=== PATIENT | female | born 1940 | race Caucasian/White ===

== ENCOUNTER 2019-03-17 08:17 | Inpatient (IN) | payer OTHER, MEDICARE, SELFPAY ==
--- NOTE | ~2019-03-17 | XR_ITS ---
EXAMINATION: XR chest 1V portable DATE: 03/20/2019 14:48 INDICATION: Pneumonia and shortness of breath TECHNIQUE: frontal view of the chest was obtained. COMPARISON: Chest radiograph dated 03/18/2019 FINDINGS: Reticular and patchy airspace opacities in the bilateral mid to lower lung zones with slight worsenin g at the left lower lung zone and slight improvement in the right lower lung zone increased lucency a nd architectural distortion in the upper lung zones suggestive but not diagnostic of COPD. Blunting a t the bilateral costophrenic angles likely related to small bilateral pleural effusions. No pneumotho rax. The cardiomediastinal silhouette is within normal limits for AP technique and accounting for rig htward rotation of the patient. Vertebral plasties of a couple levels in the midthoracic spine. IMPRESSION: 1. Opacities in the bilateral mid to lower lung zones which could represent pulmonary edema, pneumoni a or combination thereof likely superimposed over small bilateral pleural effusions. Reviewed, dictated and finalized at location B. K CAPTAIN IMPRESSION: 1. Opacities in the bilateral mid to lower lung zones which could represent pul monary edema, pneumonia or combination thereof likely superimposed over small b ilateral pleural effusions.
--- NOTE | ~2019-03-17 | XR_ITS ---
XR chest 1V portable DATE: 03/22/2019 10:22 INDICATION: Shortness of breath. Pneumonia. TECHNIQUE: Portable upright AP chest on 03/22/2019 at 1015 hours COMPARISON: 03/20/2019 portable AP chest at 1206 hours FINDINGS: There is prominent patchy consolidation in the right lower lung, increased since 03/20/2019 . There is patchy left lower lobe infiltrate and/or atelectasis. There is bilateral hyperinflation, consistent with COPD. Cardiomegaly. Aortic calcification. Diffuse osteopenia. There is vertebroplasty at two levels in the lower thoracic spine. Diffuse oste openia. IMPRESSION: Bilateral infiltrates, right greater than left, increased since 03/20/2019 Reviewed, dictated and finalized at location A. NET ABRASIVE SANDBLASTER
--- NOTE | ~2019-03-17 | XR_ITS ---
EXAMINATION: XR chest 1V portable DATE: 03/17/2019 09:54 INDICATION: Cough. Dyspnea. TECHNIQUE: A single frontal view of the chest was obtained. COMPARISON: Chest single view 04/14/2018 FINDINGS: The patient is rotated to her right. There are airspace opacities in right mid and lower patrick ng zones. There is a small right pleural effusion. No pneumothorax. The heart size is normal. IMPRESSION: 1. Airspace opacities in right mid and lower lung zones, consistent with atelectasis versus pneumonia . 2. Small right pleural effusion. Reviewed, dictated and finalized at location A. RDS MANAGEMENT MANAGER IMPRESSION: 1. Airspace opacities in right mid and lower lung zones, consistent with atelec tasis versus pneumonia. 2. Small right pleural effusion.
--- NOTE | ~2019-03-17 | XR_ITS ---
XR chest 1V portable 03/18/2019 16:44 Indication: Pneumonia. Shortness of breath. Procedure: AP portable chest Comparison: Comparison to multiple prior studies sequentially, with oldest reviewed study dated 04/14. Findings: There has been progression of extensive consolidation of the right mid and lower lung, comp atible with pneumonia. Small right pleural effusion. There is left basilar atelectasis/scarring. Ther e is emphysema. Borderline heart size. There is atherosclerosis of the aorta. Impression: 1: Progression of pneumonia involving the right mid and lower lung. 2: Small right pleural effusion. 3: Emphysema. Reviewed, dictated and finalized at location A. DEVELOPER PROGRAMMER Impression: 1: Progression of pneumonia involving the right mid and lower lung. 2: Small right pleural effusion. 3: Emphysema.
--- NOTE | ~2019-03-17 | CT_ITS ---
EXAMINATION: CT brain wo con DATE: 03/17/2019 10:07 INDICATION: Dementia. TECHNIQUE: Computed tomography (CT) of the head was performed without intravenous contrast. The mA wa s adjusted according to patient size. Iterative reconstruction technique was employed. The dose-lengt h product was 681.00 mGy-cm. COMPARISON: None FINDINGS: There is mild motion artifact. There are scattered areas of low attenuation in the cerebral white matter. There is an old infarct in left parietal lobe. There is a small old infarct in right f rontoparietal region. There is no intracranial hemorrhage, acute infarction, or abnormal intracranial mass lesion. The ventricles are normal in size. The mastoid air cells are normal. There is mild muco yousif thickening in the ethmoid sinuses. The orbits are normal. IMPRESSION: 1. Old infarcts in right frontoparietal region and left parietal lobe. 2. Extensive nonspecific cerebral white matter disease, which likely represents chronic small vessel ischemic disease. Reviewed, dictated and finalized at location A. ATION DIAGNOSTICIAN
--- NOTE | 2019-03-17 08:22 | ED.GENADULT ---
HPI - General Adult General Chief complaint: Upper Respiratory Infection Stated complaint: fever Time Seen by Provider: 03/17/19 08:22 Source: EMS Mode of arrival: EMS Limitations: dementia History of Present Illness HPI narrative: A 78 y/o female presents to the ED, via EMS, with c/o a fever. Per EMS, pt has a PMHx of a CVA and favors her right side. Pt has home health and has been sick for 1 week with a cough and a fever of 100.8 degrees F. A complete HPI is limited due to dementia. Onset (ago): week(s) (1) Associated symptoms: cough Related Data Home Medications Medication Instructions Recorded Confirmed aspirin [Adult Low Dose Aspirin] 81 mg PO DAILY 03/17/19 03/17/19 buspirone 10 mg PO BID 03/17/19 hydrocodone-acetaminophen [[place]] 1 tablet PO Q4H PRN 03/17/19 03/17/19 levofloxacin 500 mg PO DAILY 03/17/19 03/17/19 loratadine [Allergy Relief 10 mg PO DAILY 03/17/19 03/17/19 (loratadine)] lorazepam 2 mg PO BID PRN 03/17/19 03/17/19 prednisone 20 mg PO BID 03/17/19 03/17/19 zolpidem 5 mg PO HS PRN 03/17/19 03/17/19 Allergies Allergy/AdvReac Type Severity Reaction Status Date / Time azithromycin Allergy Mild Verified 06/18/12 12:00 nabumetone Allergy Unknown Verified 11/18/10 08:24 No Known Allergies Allergy Unknown Verified 03/17/19 08:57 Review of Systems Review of Systems: Narrative: CONSTITUTIONAL: Reports 100.8 degree F fever RESPIRATORY: Reports cough A complete ROS is limited due to dementia. PMFSH Past Medical History Medical History (Updated 03/17/19 @ 16:36 by Asya Restrepo MD) Asthma Bronchitis COPD (chronic obstructive pulmonary disease) CVA (cerebral vascular accident) Dementia Emphysema of lung Hyperlipidemia Osteoporosis Surgical History Surgical History (Updated 03/17/19 @ 08:40 by Carito Quiroz) H/O section History of appendectomy Family History Family History (Updated 03/17/19 @ 14:37 by Estefany Beaver RN) Mother Patient's mother is Hypertension, Onset Age: 57 Father Patient's father is Carcinoma of colon, Onset Age: 67 Sibling Carcinoma of colon Cancer Dementia Social History Social History Smoking status: Former smoker Second hand tobacco smoke exposure: Yes Smoking end date: 03/26/86 Alcohol intake: never Gender identity (if verbalized by the patient): Female Comments PCP: Dr. Porter Exam Narrative: Exam Narrative: GENERAL: Cachectic-appearing and in no acute distress. HEAD: Normocephalic, atraumatic. ENT: Nares clear, no rhinorrhea or epistaxis. Mucous membranes dry. NECK: Supple. CHEST: Coarse breath sounds on the left with crackles. Using accessory muscles to breath. Tachypnea. Hypoxia. HEART: Regular rate and rhythm. No murmur heard. Normal peripheral pulses. ABDOMEN: Soft, scaphoid, nontender, nondistended, normal active bowel sounds. EXTREMITIES: Normal range of motion. No edema. SKIN: Warm, dry, no rash. NEURO: Right-sided facial droop. Alert. Course Course Emergency Course: Patient presented for evaluation of cough from hospice facility. At the time of initial assessment, patient is hypotensive, tachycardic, tachypneic. She is afebrile. Patient is cachectic and very unwell appearing. She is in respiratory distress with use of accessory muscles to breathe. She was placed on oxygen via nasal cannula. Pt with leukocytosis, SEBASTIAN, elevated BUN consistent with dehydration. Pt with evidence of pneumonia and we will treat with IV antibiotics; per family this is in line with their wishes. No BIPAP or intubation for the patient. Patient technically meets criteria for severe sepsis given hypotension. No lactic acidosis. Patient was responsive to fluids. Regardless, patient will remain on hospice care, orders given from hospitalist for antibiotics, oxygen. Patient admitted to hospice unit. Vital Signs Vital signs: Vital Sig
--- NOTE | 2019-03-17 08:25 | ECG_ITS ---
Measurements Intervals [place] Rate: 91 P: 84 VA: 134 QRS: 77 QRSD: 94 T: 65 QT: 281 QTc: 346 Interpretive Statements SINUS RHYTHM NONSPECIFIC T-WAVE ABNORMALITY- ANTERIOR LEADS BORDERLINE ECG Electronically Signed On 03-17-2019 11:47:40 FABRIC WORKER SUPERVISOR by Wali Crabtree D.O.
[2019-03-17 08:27] VITALS: BP 95/58; PULSE 102; RESP 28; TEMP 37.2; O2SAT 94
[2019-03-17 09:07] LABS: Basophils Absolute Auto 0.1 K/mm3 (0.0-0.1); Basophils Percent Auto 0.4 % (0.2-1.2); Hematocrit 39.4 % (37.0-47.0); Hemoglobin 12.5 g/dL (12.0-15.0); Immature Granulocyte Absolute 0.06 K/mm3 (0.00-0.031); Immature Granulocyte Percent A 0.5 % (0-0.5); Lymphocytes Absolute Auto 0.89 K/mm3 (0.9-3.2); Lymphocytes Percent Auto 6.9 % (18.3-44.2); Mean Corpuscular HGB Conc 31.7 g/dl (32-36); Mean Corpuscular Hemoglobin 32.1 pg (26-34); Mean Corpuscular Volume 101.3 fl (80-100); Mean Platelet Volume 12.1 fl (7.4-10.4); Monocytes Absolute Auto 0.7 K/mm3 (0.1-0.6); Monocytes Percent Auto 5.7 % (2.6-8.5); Neutrophils Absolute Auto 11.3 K/mm3 (1.3-6.7); Neutrophils Percent Auto 86.5 % (45.5-73.1); Platelet Count Result 230 k/mm3 (150-375); Red Blood Count 3.89 M/mm3 (4.2-5.4); Red Cell Distribution Width 13.7 % (11.5-14.5)
[2019-03-17 09:17] LABS: INR 1.1; Prothrombin Time 14.1 Seconds (11.1-14.7)
[2019-03-17 09:18] LABS: Partial Thromboplastin Time 29.9 SECONDS (22.3-36.8)
[2019-03-17 09:20] LABS: Lactic Acid Reflex 1.1 mmol/L (0.7-2.1)
[2019-03-17] MEDS: AMPICILLIN SODIUM/SULBACTAM 3 GM in SODIUM CHLORIDE 0.9% IV 100 ML IVPB ×3 (09:22→21:23)
[2019-03-17] MEDS: SODIUM CHLORIDE 0.9% IV 1,000 ML 999 ML IV CONT (09:23)
[2019-03-17 09:28] LABS: Alanine Aminotransferase 12 U/L (4-35); Albumin Level 3.7 g/dL (3.5-5.1); Alkaline Phosphatase 77 U/L (38-126); Aspartate Amino Transferase 18 U/L (14-36); Bilirubin,Total 0.7 mg/dL (0.2-1.3); Blood Urea Nitrogen 47 mg/dL (7-17); Calcium 9.3 mg/dL (8.4-10.2); Carbon Dioxide 33 mmol/L (22-30); Chloride 99 mmol/L (98-107); Estimated Glomerular Filt Rate 44; Glucose 162 mg/dL (65-105); Potassium 3.5 mmol/L (3.4-5.0); Sodium 141 mmol/L (137-145)
[2019-03-17 09:31] LABS: Troponin I 0.016 ng/mL (0.000-0.034)
[2019-03-17 10:12] LABS: Add Urine Microscopic? YES; Amorphous Sediment Urine Few; Appearance Urine Turbid (Clear); Bacteria Urine Trace /hpf; Bilirubin Urine Negative (Negative); Color Urine Yellow (Yellow); Glucose Urine UA Negative (Negative); Hyaline Casts Urine 50+ /lpf; Ketones Urine Negative (Negative); Leukocyte Esterase Ur Negative LEU/UL (Negative); Mucus Urine Moderate /lpf; Nitrate Urine Negative (Negative); Protein Urine 2+ mg/dL (Negative); Specific Grav Ur 1.019 (1.001-1.035); Urobilinogen Urine Negative mg/dL (<2.0); WBC Clumps Urine Present /HPF
[2019-03-17 10:19] LABS: Blood Urine Negative (Negative)
[2019-03-17 10:37] LABS: CRP 42.6 mg/dL (<1.0)
[2019-03-17 10:45] VITALS: BP 100/55; PULSE 86; RESP 22; TEMP 37.1; O2SAT 100
[2019-03-17 11:25] LABS: NT Pro B Type Natriuretic Pept 736 PG/ML (5-100)
[2019-03-17 12:55] VITALS: BP 86/47; PULSE 88; RESP 16; TEMP 36.9; O2SAT 93
--- NOTE | 2019-03-17 12:58 | ADMGEN ---
This patient, Buffy Mercado, was admitted to [facility] 1255. Patient/family oriented to hospital policies and general routines including ID bracelet, bed and alarms, visiting hours, pain management, procedures, bathroom and other care routines, personal items, smoking policy, room service/diet, and visiting hours. Valuables list has been completed. Information on how to activate the Rapid Response Team has been discussed. Patient/Family are encouraged to report perceived risks to care and to ask questions if they do not understand what they are told or what they should do.
[2019-03-17 14:08] VITALS: BMI 16.1
[2019-03-17] MEDS: LORAZEPAM INJ 2 MG/ML VIAL 1 MG IV PUSH (16:26)
[2019-03-17 20:00] VITALS: BP 112/49; PULSE 92; RESP 20; TEMP 36.9; O2SAT 95
[2019-03-17] MEDS: QUEtiapine FUMARATE 25 MG TABLET PO (21:24)
[2019-03-18] MEDS: AMPICILLIN SODIUM/SULBACTAM 3 GM in SODIUM CHLORIDE 0.9% IV 100 ML IVPB ×4 (03:30→19:58)
[2019-03-18 08:00] VITALS: BP 96/47; PULSE 124; RESP 16; TEMP 36.8; O2SAT 89
[2019-03-18] MEDS: ASPIRIN 81 MG CHEWABLE TABLET PO (09:42)
--- NOTE | 2019-03-18 16:20 | PM.IMHP ---
H&P: HPI History of Present Illness Chief complaint: pneumonia Narrative: Buffy Mercado is a 78 year old female patient was seen today at 10am, patient currently is on hospice was brought to the emergency department patient had this persistent cough and fever patient is chest x-ray patient the patient has pneumonia patient was admitted for pain management as well as with IV antibiotic, patient is quite somnolent and sleepy son present in the room who states normally sees much alert and interactive however since development pneumonia patient is quite somnolent Review of Systems Review of Systems: ROS unobtainable: unobtainable due to mental condition PMFSH Past Medical History Medical History (Updated 03/17/19 @ 16:36 by Asya Restrepo MD) Asthma Bronchitis COPD (chronic obstructive pulmonary disease) CVA (cerebral vascular accident) Dementia Emphysema of lung Hyperlipidemia Osteoporosis Surgical History Surgical History (Updated 03/17/19 @ 08:40 by Carito Quiroz) H/O section History of appendectomy Family History Family History (Updated 03/17/19 @ 14:37 by Estefany Beaver RN) Mother Patient's mother is Hypertension, Onset Age: 57 Father Patient's father is Carcinoma of colon, Onset Age: 67 Sibling Carcinoma of colon Cancer Dementia Social History Social History Smoking status: Former smoker Second hand tobacco smoke exposure: Yes Smoking end date: 03/26/86 Alcohol intake: never Gender identity (if verbalized by the patient): Female Meds Home Medications and Allergies Home Medications Medication Instructions Recorded Confirmed Type aspirin [Adult Low Dose Aspirin] 81 mg PO DAILY 03/17/19 03/17/19 History buspirone 10 mg PO BID 03/17/19 03/17/19 History hydrocodone-acetaminophen [[place]] 1 tablet PO Q4H PRN 03/17/19 03/17/19 History levofloxacin 500 mg PO DAILY 03/17/19 03/17/19 History loratadine [Allergy Relief 10 mg PO DAILY 03/17/19 03/17/19 History (loratadine)] lorazepam 2 mg PO BID PRN 03/17/19 03/17/19 History prednisone 20 mg PO BID 03/17/19 03/17/19 History zolpidem 5 mg PO HS PRN 03/17/19 03/17/19 History Allergies Allergy/AdvReac Type Severity Reaction Status Date / Time azithromycin Allergy Mild Verified 06/18/12 12:00 nabumetone Allergy Unknown Verified 11/18/10 08:24 No Known Allergies Allergy Unknown Verified 03/17/19 08:57 Vital Signs Vital Signs - 24 hr 03/17/19 20:00 03/18/19 08:00 Temperature 98.4 F 98.2 F Pulse Rate 92 124 H Respiratory Rate 20 16 Blood Pressure 112/49 L 96/47 L Pulse Oximetry 95 89 L Exam Narrative: Exam Narrative: Patient elderly frail somnolent Const: General: comfortable and no acute distress HENMT: General nose exam: nares normal Neck: Neck: supple Resp: Other: Bilateral fair air entry with rhonchi Cardio: Rate: regular rate Rhythm: regular rhythm GI: GI Palp: Yes soft Auscultation: normal bowel sounds Skin: General skin exam: normal color and no rashes or lesions noted Extrem: General: normal to inspection Psych: Other: Patient is quite somnolent Assessment and Plan Assessment and plan (1) Pneumonia: Qualifiers: Laterality: bilateral Lung location: unspecified part of lung Pneumonia type: due to unspecified organism Qualified Code(s): J18.9 - Pneumonia, unspecified organism Code(s): J18.9 - Pneumonia, unspecified organism Status: Acute Assessment and Plan: Buffy Mercado is a 78 year old female patient was seen today at 10am, patient currently is on hospice was brought to the emergency department patient had this persistent cough and fever patient is chest x-ray patient the patient has pneumonia patient was admitted for pain management as well as with IV antibiotic, patient is quite somnolent and sleepy son present in the room who states normal
[2019-03-18] MEDS: LORAZEPAM INJ 2 MG/ML VIAL 1 MG IV PUSH (16:51)
[2019-03-18 20:00] VITALS: BP 114/58; PULSE 78; RESP 16; TEMP 37; O2SAT 94
[2019-03-18] MEDS: QUEtiapine FUMARATE 25 MG TABLET PO (20:03)
--- NOTE | 2019-03-18 21:40 | PM.IMPN ---
Progress Note: A&P Assessment and Plan (1) Admission for palliative care: Code(s): Z51.5 - Encounter for palliative care Status: Acute Assessment and Plan: The patient appears comfortable and is in no distress. Will continue p.r.n. Ativan for agitation and Seroquel. (2) Pneumonia: Qualifiers: Laterality: bilateral Lung location: unspecified part of lung Pneumonia type: due to unspecified organism Qualified Code(s): J18.9 - Pneumonia, unspecified organism Code(s): J18.9 - Pneumonia, unspecified organism Status: Acute (3) Sepsis: Qualifiers: Acute renal failure type: unspecified Sepsis acute organ dysfunction status: with acute organ dysfunction Sepsis type: sepsis due to unspecified organism Severe sepsis acute organ dysfunction type: acute renal failure Severe sepsis shock status: without septic shock Qualified Code(s): A41.9 - Sepsis, unspecified organism; R65.20 - Severe sepsis without septic shock; N17.9 - Acute kidney failure, unspecified Code(s): A41.9 - Sepsis, unspecified organism Status: Acute Assessment and Plan: Patient is on IV antibiotic therapy. The patient may be transitioned to oral therapy at time of discharge. (4) Dementia: Qualifiers: Dementia type: unspecified type Dementia behavioral disturbance: with behavioral disturbance Qualified Code(s): F03.91 - Unspecified dementia with behavioral disturbance Code(s): F03.90 - Unspecified dementia without behavioral disturbance Status: Acute Assessment and Plan: Continue Seroquel nightly. Patient could be switched back to her home BuSpar at discharge. Time Spent With Patient Time with patient: 15 - 25 minutes Subjective Date/time seen: 03/18/19 21:40 Review of Systems Review of Systems: ROS unobtainable: unobtainable due to mental status Exam Narrative: Exam Narrative: PHYSICAL EXAM: WEIGHT 43.9 kg BMI 16.1 General: HEENT: Neck: Respiratory: Cardiovascular: Gastrointestinal: Skin: Extremities: Neurological: Psychiatric: Objective Data Vital Signs Vital Signs: Vital Signs - 24 hr 03/18/19 08:00 03/18/19 20:00 Temperature 98.2 F 98.6 F Pulse Rate 124 H 78 Respiratory Rate 16 16 Blood Pressure 96/47 L 114/58 L Pulse Oximetry 89 L 94 Intake/Output Intake/Output: Intake & Output 03/15/19 03/16/19 03/17/19 03/18/19 23:59 23:59 23:59 23:59 Intake Total 1550 600 Output Total 600 Balance 950 600 Meds/Results Medications: Active Medications Generic Name Dose Route Start Last Admin Trade Name Freq PRN Reason Stop Dose Admin Albuterol 2.5 mg 03/17/19 18:14 Albuterol Sulf Neb 2.5 Mg/3 Ml INHALATION Q4HRT PRN Shortness Of Breath Or Wheezing Aspirin 81 mg 03/18/19 08:00 03/18/19 09:42 Aspirin Chewable PO 81 mg DAILY@0800 JASPAL Administration Atropine Sulfate 2 drop 03/17/19 14:41 Atropine Sulfate 1% Ophth Shaniqua SUBLINGUAL Q4H PRN Secretions Bisacodyl 10 mg 03/17/19 14:41 Dulcolax Suppository RECTAL QAM PRN Constipation Ampicillin Sodium/Sulbactam 100 mls @ 200 mls/hr 03/17/19 15:00 03/18/19 19:58 Sodium 3 gm/ Sodium Chloride IVPB 200 mls/hr Q6H JASPAL Administration Vancomycin HCl 750 mg in 250 mls @ 250 mls/hr 03/19/19 02:00 Vancomycin 750 Mg/D5w 250 Ml IVPB Q36H JASPAL Lorazepam 1 mg 03/17/19 17:00 03/18/19 16:51 Ativan IV PUSH 1 mg BID JASPAL Administration Lorazepam 2 mg 03/17/19 14:39 Ativan IV PUSH Q2H PRN ANXIETY/SOB Morphine Sulfate 1 mg 03/17/19 14:40 Morphine Sulfate Inj IV PUSH Q2H PRN Pain Quetiapine Fumarate 25 mg 03/17/19 21:00 03/18/19 20:03 Seroquel PO 25 mg HS JASPAL Administration Radiology Results: ITS Impressions Head CT 03/17/19 10:10 IMPRESSION: 1. Old infarcts in right frontoparietal region and left parietal lobe. 2. Extensive nonsp
[2019-03-19] MEDS: AMPICILLIN SODIUM/SULBACTAM 3 GM in SODIUM CHLORIDE 0.9% IV 100 ML IVPB ×4 (03:09→21:02)
[2019-03-19] MEDS: LORAZEPAM INJ 2 MG/ML VIAL 1 MG IV PUSH ×2 (09:20→16:06)
[2019-03-19] MEDS: MORPHINE SULFATE 2 MG/ML INJ 1 MG IV PUSH (13:29)
[2019-03-19 14:00] VITALS: BP 107/51; PULSE 78; RESP 16; TEMP 36.3; O2SAT 93
--- NOTE | 2019-03-19 15:47 | PM.IMPN ---
Progress Note: A&P Assessment and Plan (1) Admission for palliative care: Code(s): Z51.5 - Encounter for palliative care Status: Acute Assessment and Plan: The patient appears comfortable and is in no distress. Will continue p.r.n. Ativan for agitation and Seroquel. (2) Pneumonia: Qualifiers: Laterality: bilateral Lung location: unspecified part of lung Pneumonia type: due to unspecified organism Qualified Code(s): J18.9 - Pneumonia, unspecified organism Code(s): J18.9 - Pneumonia, unspecified organism Status: Acute Assessment and Plan: Buffy Mercado is a 78 year old female patient was seen today at 10am, patient currently is on hospice was brought to the emergency department patient had this persistent cough and fever patient is chest x-ray patient the patient has pneumonia patient was admitted for pain management as well as with IV antibiotic, repeat chest x-ray on 03/18 showed peristent pneumonia, today patient little more awake, [facility] nurse is present. will monitor and plan tomorrow. (3) Sepsis: Qualifiers: Acute renal failure type: unspecified Sepsis acute organ dysfunction status: with acute organ dysfunction Sepsis type: sepsis due to unspecified organism Severe sepsis acute organ dysfunction type: acute renal failure Severe sepsis shock status: without septic shock Qualified Code(s): A41.9 - Sepsis, unspecified organism; R65.20 - Severe sepsis without septic shock; N17.9 - Acute kidney failure, unspecified Code(s): A41.9 - Sepsis, unspecified organism Status: Acute Assessment and Plan: Patient is on IV antibiotic therapy. The patient may be transitioned to oral therapy at time of discharge. (4) Dementia: Qualifiers: Dementia type: unspecified type Dementia behavioral disturbance: with behavioral disturbance Qualified Code(s): F03.91 - Unspecified dementia with behavioral disturbance Code(s): F03.90 - Unspecified dementia without behavioral disturbance Status: Acute Assessment and Plan: Continue Seroquel nightly. Patient could be switched back to her home BuSpar at discharge. Subjective Date/time seen: 03/19/19 15:47 Interval history: Buffy Mercado is a 78 year old female patient was seen today at 10am, patient currently is on hospice was brought to the emergency department patient had this persistent cough and fever patient is chest x-ray patient the patient has pneumonia patient was admitted for pain management as well as with IV antibiotic, repeat chest x-ray on 03/18 showed peristent pneumonia, today patient little more awake, [facility] nurse is present. Review of Systems Review of Systems: ROS unobtainable: unobtainable due to mental condition and unobtainable due to mental status Exam Narrative: Exam Narrative: Elderly frail some Const: General: comfortable and no acute distress HENMT: General nose exam: nares normal Mouth: Yes moist mucous membranes Eyes: General: appearance normal, both eyes and all related structures Sclera: sclerae normal Neck: Neck: supple Resp: Other: Bilateral poor air entry with rhonchi Cardio: Rate: regular rate Rhythm: regular rhythm Objective Data Vital Signs Vital Signs: Vital Signs - 24 hr 03/18/19 20:00 03/19/19 14:00 Temperature 98.6 F 97.3 F L Pulse Rate 78 78 Respiratory Rate 16 16 Blood Pressure 114/58 L 107/51 L Pulse Oximetry 94 93 Intake/Output Intake/Output: Intake & Output 03/16/19 03/17/19 03/18/19 03/19/19 23:59 23:59 23:59 23:59 Intake Total 1550 700 570 Output Total 600 Balance 950 700 570 Meds/Results Medications: Active Medications Generic Name Dose Route Start Last Admin Trade Name Freq PRN Reason Stop Dose Admin Albuterol 2.5 mg 03/17/19 18:14 Albuterol Sulf Neb 2.5 Mg/3 Ml INHALATION Q4HRT PRN Shortness Of Breath Or Wheezing Aspirin 81 mg 03/18/19 08:00 03/19/19 09:34 Aspi
[2019-03-19] MEDS: QUEtiapine FUMARATE 25 MG TABLET PO (21:02)
[2019-03-19 22:00] VITALS: BP 119/75; PULSE 88; RESP 16; TEMP 37; O2SAT 95
[2019-03-20] MEDS: AMPICILLIN SODIUM/SULBACTAM 3 GM in SODIUM CHLORIDE 0.9% IV 100 ML IVPB ×4 (02:47→22:11)
[2019-03-20 06:27] LABS: Estimated CRCL calculation 41 ml/min; Estimated Glomerular Filt Rate > 60
[2019-03-20 07:55] VITALS: O2SAT 95
[2019-03-20] MEDS: ASPIRIN 81 MG CHEWABLE TABLET PO (08:55)
[2019-03-20 13:53] LABS: Vancomycin Trough < 5.0 ug/mL (10.0-20.0)
[2019-03-20 15:03] VITALS: BP 136/64; PULSE 84; RESP 16; TEMP 36.7; O2SAT 97
--- NOTE | 2019-03-20 15:26 | PM.IMPN ---
Progress Note: A&P Assessment and Plan (1) Admission for palliative care: Code(s): Z51.5 - Encounter for palliative care Status: Acute Assessment and Plan: The patient appears comfortable and is in no distress. Will continue p.r.n. Ativan for agitation and Seroquel. (2) Pneumonia: Qualifiers: Laterality: bilateral Lung location: unspecified part of lung Pneumonia type: due to unspecified organism Qualified Code(s): J18.9 - Pneumonia, unspecified organism Code(s): J18.9 - Pneumonia, unspecified organism Status: Acute Assessment and Plan: Buffy Mercado is a 78 year old female patient was seen today at 10am, patient currently is on hospice was brought to the emergency department patient had this persistent cough and fever patient is chest x-ray patient the patient has pneumonia patient was admitted for pain management as well as with IV antibiotic, repeat chest x-ray on 03/18 showed peristent pneumonia, repeat CXR still shows perisistent pneumonia with some improvement, patient little more awake, two of her sons are present. we will reassess tomorrow and plan. (3) Sepsis: Qualifiers: Acute renal failure type: unspecified Sepsis acute organ dysfunction status: with acute organ dysfunction Sepsis type: sepsis due to unspecified organism Severe sepsis acute organ dysfunction type: acute renal failure Severe sepsis shock status: without septic shock Qualified Code(s): A41.9 - Sepsis, unspecified organism; R65.20 - Severe sepsis without septic shock; N17.9 - Acute kidney failure, unspecified Code(s): A41.9 - Sepsis, unspecified organism Status: Acute Assessment and Plan: Patient is on IV antibiotic therapy. The patient may be transitioned to oral therapy at time of discharge. (4) Dementia: Qualifiers: Dementia type: unspecified type Dementia behavioral disturbance: with behavioral disturbance Qualified Code(s): F03.91 - Unspecified dementia with behavioral disturbance Code(s): F03.90 - Unspecified dementia without behavioral disturbance Status: Acute Assessment and Plan: Continue Seroquel nightly. Patient could be switched back to her home BuSpar at discharge. Subjective Date/time seen: 03/20/19 15:26 Interval history: Buffy Mercado is a 78 year old female patient was seen today at 10am, patient currently is on hospice was brought to the emergency department patient had this persistent cough and fever patient is chest x-ray patient the patient has pneumonia patient was admitted for pain management as well as with IV antibiotic, repeat chest x-ray on 03/18 showed peristent pneumonia, repeat CXR still shows perisistent pneumonia with some improvement, patient little more awake, two of her sons are present. . Review of Systems Review of Systems: ROS unobtainable: unobtainable due to mental condition and unobtainable due to mental status Exam Narrative: Exam Narrative: Elderly frail some Const: General: comfortable and no acute distress HENMT: General nose exam: nares normal Mouth: Yes moist mucous membranes Eyes: General: appearance normal, both eyes and all related structures Sclera: sclerae normal Neck: Neck: supple Resp: Other: Bilateral poor air entry with rhonchi Cardio: Rate: regular rate Rhythm: regular rhythm GI: Auscultation: normal bowel sounds Skin: General skin exam: normal color and no rashes or lesions noted Extrem: General: normal to inspection Psych: Other: Patient is quite somnolent Objective Data Vital Signs Vital Signs: Vital Signs - 24 hr 03/19/19 22:00 03/20/19 07:55 03/20/19 15:03 Temperature 98.6 F 98.0 F Pulse Rate 88 84 Respiratory Rate 16 16 Blood Pressure 119/75 136/64 Pulse Oximetry 95 95 97 Intake/Output Intake/Output: Intake & Output 03/17/19 03/18/19 03/19/19 03/20/19 23:59 23:59 23:59 23:59 Intake Total 1550 700 890 200 Output Total
[2019-03-20] MEDS: LORAZEPAM INJ 2 MG/ML VIAL 1 MG IV PUSH (16:42)
[2019-03-20 22:00] VITALS: BP 138/56; PULSE 87; RESP 16; TEMP 36.7; O2SAT 94
[2019-03-20] MEDS: QUEtiapine FUMARATE 25 MG TABLET PO (22:10)
[2019-03-21] MEDS: AMPICILLIN SODIUM/SULBACTAM 3 GM in SODIUM CHLORIDE 0.9% IV 100 ML IVPB ×4 (03:08→20:45)
--- NOTE | 2019-03-21 09:25 | PM.IMPN ---
Progress Note: A&P Assessment and Plan (1) Admission for palliative care: Code(s): Z51.5 - Encounter for palliative care Status: Acute Assessment and Plan: The patient appears comfortable and is in no distress. Will continue p.r.n. Ativan for agitation and Seroquel. (2) Pneumonia: Qualifiers: Laterality: bilateral Lung location: unspecified part of lung Pneumonia type: due to unspecified organism Qualified Code(s): J18.9 - Pneumonia, unspecified organism Code(s): J18.9 - Pneumonia, unspecified organism Status: Acute Assessment and Plan: Buffy Mercado is a 78 year old female patient was seen today at 10am, patient currently is on hospice was brought to the emergency department patient had this persistent cough and fever patient is chest x-ray patient the patient has pneumonia patient was admitted for pain management as well as with IV antibiotic, repeat chest x-ray on 03/18 showed peristent pneumonia, repeat CXR still shows perisistent pneumonia with some improvement, patient little more awake, two of her sons are present. we will reassess tomorrow and plan. --03/21/2019 I discussed the patient's case with Dr. Beyer who had been following with the patient the last several days and with the hospice nurse. Unfortunately uvula patient's condition is not likely to improve significantly. I think she is going to continue to wax and wane in both physical condition and mental status from this point onward. Unfortunately family was not available at bedside at the time of my evaluation. Hospice nurse is going to talk with the patient's family and discuss goals of care. I feel we are not doing anything in the hospital at we could not be doing as outpatient with oral antibiotics and nebulizer treatments at home. However hospice nurse will discuss with the patient's family and will decide final plan from there. (3) Sepsis: Qualifiers: Acute renal failure type: unspecified Sepsis acute organ dysfunction status: with acute organ dysfunction Sepsis type: sepsis due to unspecified organism Severe sepsis acute organ dysfunction type: acute renal failure Severe sepsis shock status: without septic shock Qualified Code(s): A41.9 - Sepsis, unspecified organism; R65.20 - Severe sepsis without septic shock; N17.9 - Acute kidney failure, unspecified Code(s): A41.9 - Sepsis, unspecified organism Status: Acute Assessment and Plan: Patient is on IV antibiotic therapy. The patient may be transitioned to oral therapy at time of discharge. (4) Dementia: Qualifiers: Dementia type: unspecified type Dementia behavioral disturbance: with behavioral disturbance Qualified Code(s): F03.91 - Unspecified dementia with behavioral disturbance Code(s): F03.90 - Unspecified dementia without behavioral disturbance Status: Acute Assessment and Plan: Continue Seroquel nightly. Patient could be switched back to her home BuSpar at discharge. Subjective Date/time seen: 03/21/19 07:00 Interval history: Buffy Mercado is a 78 year old female patient was seen today at 10am, patient currently is on hospice was brought to the emergency department patient had this persistent cough and fever patient is chest x-ray patient the patient has pneumonia patient was admitted for pain management as well as with IV antibiotic, repeat chest x-ray on 03/18 showed peristent pneumonia, repeat CXR 03/20/19 demontrated slight improvement in the opacities of the 1 lung zone with slight worsening opacities still the other lung zone. The patient is not having good inspiratory effort. Patient's condition is largely unchanged compared to examination from Sunday. Review of Systems Review of Systems: ROS unobtainable: unobtainable due to mental condition and unobtainable due to mental status Exam Narrative: Exam Narrative: PHYSICAL EXAM: WEIGHT 43.9 kg BMI 16.1 General: Elderly, frail
[2019-03-21 14:06] VITALS: BP 111/55; PULSE 74; RESP 20; TEMP 36.8; O2SAT 99
[2019-03-21] MEDS: LORAZEPAM INJ 2 MG/ML VIAL 1 MG IV PUSH (17:28)
[2019-03-21 20:00] VITALS: BP 116/54; PULSE 76; RESP 16; TEMP 36.9; O2SAT 98
[2019-03-21 20:13] VITALS: PULSE 81; RESP 20; O2SAT 96
[2019-03-21] MEDS: ALBUTEROL SULFATE NEB 2.5 MG/3 ML INH INHALATION (20:13)
[2019-03-21 20:26] VITALS: PULSE 84; RESP 20
[2019-03-21] MEDS: QUEtiapine FUMARATE 25 MG TABLET PO (20:45)
[2019-03-22 01:19] VITALS: PULSE 74; RESP 16
[2019-03-22] MEDS: ALBUTEROL SULFATE NEB 2.5 MG/3 ML INH INHALATION ×2 (01:19→13:45)
[2019-03-22 01:29] VITALS: PULSE 73; RESP 16
[2019-03-22] MEDS: AMPICILLIN SODIUM/SULBACTAM 3 GM in SODIUM CHLORIDE 0.9% IV 100 ML IVPB ×2 (03:25→10:08)
[2019-03-22] MEDS: ASPIRIN 81 MG CHEWABLE TABLET PO (08:52)
--- NOTE | 2019-03-22 09:33 | PM.DS ---
DS: Diagnosis Admitting Diagnosis Admitting Diagnosis: Pneumonia, unspecified organism Discharge Diagnosis (1) Admission for palliative care: Code(s): Z51.5 - Encounter for palliative care Status: Acute Assessment and Plan: The patient appears comfortable and is in no distress. Will continue p.r.n. Ativan for agitation and Seroquel. (2) Pneumonia: Qualifiers: Laterality: bilateral Lung location: unspecified part of lung Pneumonia type: due to unspecified organism Qualified Code(s): J18.9 - Pneumonia, unspecified organism Code(s): J18.9 - Pneumonia, unspecified organism Status: Acute Assessment and Plan: Buffy Mercado is a 78 year old female patient was seen today at 10am, patient currently is on hospice was brought to the emergency department patient had this persistent cough and fever patient is chest x-ray patient the patient has pneumonia patient was admitted for pain management as well as with IV antibiotic, repeat chest x-ray on 03/18 showed peristent pneumonia, repeat CXR still shows perisistent pneumonia with some improvement, patient little more awake, two of her sons are present. we will reassess tomorrow and plan. --03/21/2019 I discussed the patient's case with Dr. Beyer who had been following with the patient the last several days and with the hospice nurse. Unfortunately uvula patient's condition is not likely to improve significantly. I think she is going to continue to wax and wane in both physical condition and mental status from this point onward. Unfortunately family was not available at bedside at the time of my evaluation. Hospice nurse is going to talk with the patient's family and discuss goals of care. I feel we are not doing anything in the hospital at we could not be doing as outpatient with oral antibiotics and nebulizer treatments at home. However hospice nurse will discuss with the patient's family and will decide final plan from there. --03/22/2019 the patient remains stable on 3 L nasal cannula. A repeat chest x-ray has been ordered since the family was expecting a repeat chest x-ray. However no matter what the results are of the chest x-ray will not change the fact that the patient is hemodynamically stable and can receive oral antibiotic therapy to cover for pneumonia. The patient already has supplemental oxygen at home to use as needed. Will add albuterol nebulizers as needed. (3) Sepsis: Qualifiers: Acute renal failure type: unspecified Sepsis acute organ dysfunction status: with acute organ dysfunction Sepsis type: sepsis due to unspecified organism Severe sepsis acute organ dysfunction type: acute renal failure Severe sepsis shock status: without septic shock Qualified Code(s): A41.9 - Sepsis, unspecified organism; R65.20 - Severe sepsis without septic shock; N17.9 - Acute kidney failure, unspecified Code(s): A41.9 - Sepsis, unspecified organism Status: Resolved Assessment and Plan: Patient is on IV antibiotic therapy. The patient may be transitioned to oral therapy at time of discharge. (4) Dementia: Qualifiers: Dementia behavioral disturbance: with behavioral disturbance Dementia type: unspecified type Qualified Code(s): F03.91 - Unspecified dementia with behavioral disturbance Code(s): F03.90 - Unspecified dementia without behavioral disturbance Status: Acute Assessment and Plan: Continue Seroquel nightly but switch to p.r.n. as needed for sleep. Will resume home BuSpar at discharge. DS: Summary Hospital Course Reason for hospitalization: Pneumonia, sepsis, hypotension, hypoxia Sepsis and hypotension have resolved Hospital Course: Is the patient was admitted the hospital for hypoxia and initial hypotension. However hypotension had resolved in the ER. Patient was placed on 2-3 L nasal cannula. She remained afebrile. She did not have any leukocytosis. She had received 5 days o
[2019-03-22] MEDS: LORAZEPAM INJ 2 MG/ML VIAL 1 MG IV PUSH (10:08)
--- NOTE | 2019-03-22 10:56 | PCRCNOTE ---
Window of time for administration has passed. See next scheduled administration.
[2019-03-22 13:46] VITALS: PULSE 76; RESP 16
[2019-03-22 13:52] VITALS: PULSE 76; RESP 16
[2019-03-22 14:00] VITALS: BP 102/52; PULSE 81; RESP 18; TEMP 36.6; O2SAT 94
--- NOTE | 2019-03-22 16:20 | PCCCNOTE ---
Pt's son Evans Mock called at 1610 and requested to cancel the EMS transport and to revoke hospice, he wants his mother's pnue kosta treated. Called and notified [facility] patient care nursing assistant and she stated she would notify Minh. Called Evans back to let him know I had informed the staff of his wishes.
== END 2019-03-22 16:52 | disposition short-term general hospital (02) | DRG 871 ==
LOC: ANHED 11:14 → ANH3MEDSUR 13:37
PROVIDERS: Admitting Provider Family Medicine; Emergency Provider Emergency Medicine; PCP Internal Medicine; Visit Provider Internal Medicine
DX: A41.9 Sepsis, unspecified organism (principal); J18.9 Pneumonia, unspecified organism; F03.91 Unspecified dementia, unspecified severity, with behavioral disturbance; R64 Cachexia; Z68.1 Body mass index [BMI] 19.9 or less, adult; N17.9 Acute kidney failure, unspecified; R65.20 Severe sepsis without septic shock; R09.02 Hypoxemia; E86.0 Dehydration; J43.9 Emphysema, unspecified; E78.5 Hyperlipidemia, unspecified; M81.0 Age-related osteoporosis without current pathological fracture; Z51.5 Encounter for palliative care; Z86.73 Personal history of transient ischemic attack (TIA), and cerebral infarction without residual deficits; Z87.891 Personal history of nicotine dependence
CPT/HCPCS: 36415; 51701; 70450; 71045; 80053; 80202; 81001; 82565; 83605; 83880; 84484; 85025; 85610; 85730; 86140; 87040; 87086; 87804; 93005; 94640; 96365; 99285; A9270; J0295; J2060; J2270; J3370; J7030

== ENCOUNTER 2019-03-22 16:53 | Inpatient (IN) | payer MEDICARE, OTHER, SELFPAY ==
[2019-03-22 19:13] VITALS: BMI 16.1
[2019-03-22] MEDS: AMPICILLIN SULB 3 GM/NS 100 ML 3 GM/100 ML VIAL IVPB (19:33)
[2019-03-22] MEDS: QUEtiapine FUMARATE 25 MG TABLET PO (21:05)
[2019-03-22 21:51] LABS: Estimated CRCL calculation 54 ml/min; Estimated Glomerular Filt Rate > 60
[2019-03-22 22:00] VITALS: BP 149/97; PULSE 85; RESP 16; TEMP 36.9; O2SAT 95
[2019-03-23] MEDS: AMPICILLIN SULB 3 GM/NS 100 ML 3 GM/100 ML VIAL IVPB ×3 (00:58→12:00)
[2019-03-23 06:40] VITALS: BP 130/65; PULSE 76; RESP 20; TEMP 36.4; O2SAT 97
[2019-03-23 06:51] LABS: Basophils Percent Auto 0.5 % (0.2-1.2); Eosinophils Absolute Auto 0.4 K/mm3 (0-0.3); Eosinophils Percent Auto 4.3 % (0-4.4); Hematocrit 34.4 % (37.0-47.0); Hemoglobin 10.7 g/dL (12.0-15.0); Immature Granulocyte Absolute 0.21 K/mm3 (0.00-0.031); Immature Granulocyte Percent A 2.4 % (0-0.5); Lymphocytes Percent Auto 16.1 % (18.3-44.2); Mean Corpuscular HGB Conc 31.1 g/dl (32-36); Mean Corpuscular Hemoglobin 31.8 pg (26-34); Mean Corpuscular Volume 102.1 fl (80-100); Mean Platelet Volume 10.6 fl (7.4-10.4); Monocytes Absolute Auto 0.7 K/mm3 (0.1-0.6); Monocytes Percent Auto 7.7 % (2.6-8.5); Platelet Count Result 292 k/mm3 (150-375); Red Blood Count 3.37 M/mm3 (4.2-5.4); Red Cell Distribution Width 12.7 % (11.5-14.5); White Blood Count 8.7 K/mm3 (4.5-10.0)
[2019-03-23 07:08] LABS: Alanine Aminotransferase 15 U/L (4-35); Albumin Level 2.8 g/dL (3.5-5.1); Alkaline Phosphatase 51 U/L (38-126); Aspartate Amino Transferase 16 U/L (14-36); Bilirubin,Total 0.3 mg/dL (0.2-1.3); Blood Urea Nitrogen 9 mg/dL (7-17); Calcium 8.6 mg/dL (8.4-10.2); Carbon Dioxide > 40 mmol/L (22-30); Chloride 98 mmol/L (98-107); Estimated CRCL calculation 54 ml/min; Estimated Glomerular Filt Rate > 60; Glucose 95 mg/dL (65-105); Sodium 141 mmol/L (137-145)
--- NOTE | 2019-03-23 09:07 | PC.NURSE ---
This patient, Buffy Mercado, was admitted to [facility] Surg Room 333-01 on 03/22/19 @ 5513. Patient/family oriented to hospital policies and general routines including ID bracelet, bed and alarms, visiting hours, pain management, procedures, bathroom and other care routines, personal items, smoking policy, room service/diet, and visiting hours. Valuables list has been completed. Information on how to activate the Rapid Response Team has been discussed. Patient/Family are encouraged to report perceived risks to care and to ask questions if they do not understand what they are told or what they should do.
[2019-03-23] MEDS: predniSONE 20 MG TABLET PO (09:25)
[2019-03-23] MEDS: LORATADINE 10 MG TABLET PO (09:25)
[2019-03-23] MEDS: busPIRone HCL 10 MG TABLET PO (09:26)
[2019-03-23] MEDS: POTASSIUM CHLORIDE 20 MEQ PACKET (FOR LIQUID) 40 MEQ PO (09:26)
[2019-03-23] MEDS: ASPIRIN 81 MG ENTERIC TABLET PO (09:51)
--- NOTE | 2019-03-23 10:22 | PM.IMHP ---
H&P: HPI History of Present Illness Narrative: Buffy Mercado is a 79 year old female Patient had been on hospice care and was brought the ER for evaluation and was found to have pneumonia patient was started on IV abx and monitored as patient symptoms were not improving patient family decided to revoke her hospice status and patient is admitted for pneumonia, unfortunately patient is not able to provide and history or ROS Review of Systems Review of Systems: ROS unobtainable: unobtainable due to mental condition [facility] Past Medical History Medical History (Updated 03/22/19 @ 09:53 by Ondina Marsh, DO) Asthma Bronchitis COPD (chronic obstructive pulmonary disease) CVA (cerebral vascular accident) Dementia Emphysema of lung Hyperlipidemia Osteoporosis Surgical History Surgical History (Updated 03/17/19 @ 08:40 by Carito Quiroz) H/O section History of appendectomy Social History Social History Smoking status: Former smoker Second hand tobacco smoke exposure: Yes Smoking end date: 03/26/86 Alcohol intake: never Substance use: never Substance use type: does not use Gender identity (if verbalized by the patient): Female Meds Home Medications and Allergies Home Medications Medication Instructions Recorded Confirmed Type aspirin [Adult Low Dose Aspirin] 81 mg PO DAILY 03/17/19 03/22/19 History buspirone 10 mg PO BID 03/17/19 03/22/19 History hydrocodone-acetaminophen [[place]] 1 tablet PO Q4H PRN 03/17/19 03/22/19 History loratadine [Allergy Relief 10 mg PO DAILY 03/17/19 03/22/19 History (loratadine)] lorazepam 2 mg PO BID PRN 03/17/19 03/22/19 History prednisone 20 mg PO BID 03/17/19 03/22/19 History albuterol sulfate 2.5 mg INHALATION Q6HRT PRN 30 03/22/19 03/22/19 Rx Days #360 ml amoxicillin-pot clavulanate 1 tablet PO Q12H #10 tablet 03/22/19 03/22/19 Rx [Augmentin] bisacodyl 10 mg [place] QAM PRN #5 each 03/22/19 03/22/19 Rx quetiapine [Seroquel] 25 mg PO HS PRN #15 tablet 03/22/19 03/22/19 Rx Allergies Allergy/AdvReac Type Severity Reaction Status Date / Time azithromycin Allergy Mild Unknown Verified 03/19/19 23:52 nabumetone Allergy Unknown Unknown Verified 03/19/19 23:52 Vital Signs Vital Signs - 24 hr 03/22/19 22:00 03/23/19 06:40 Temperature 98.5 F 97.6 F Pulse Rate 85 76 Respiratory Rate 16 20 Blood Pressure 149/97 H 130/65 Pulse Oximetry 95 97 Exam Narrative: Exam Narrative: Patient is chronically ill elderly and frail Const: General: comfortable and no acute distress HENMT: General nose exam: nares normal Mouth: Yes moist mucous membranes Eyes: General: appearance normal, both eyes and all related structures Neck: Neck: supple Resp: Other: Bilateral poor air entry with rhonchi Cardio: Rate: regular rate Rhythm: regular rhythm GI: GI Palp: Yes soft Skin: General skin exam: normal color and no rashes or lesions noted Neuro: Cognition (Neuro): abnormal cognition Extrem: Other: Some contraction Psych: Other: Somnolent H&P: Results Labs Labs: Short CBC 03/23/19 Range/Units 06:38 WBC 8.7 (4.5-10.0) K/mm3 Hgb 10.7 L (12.0-15.0) g/dL Hct 34.4 L (37.0-47.0) % Plt Count 292 (150-375) k/mm3 [facility] 03/22/19 03/23/19 21:17 06:38 Sodium 141 Potassium 3.0 L Chloride 98 Carbon Dioxide > 40 H BUN 9 D Creatinine 0.50 L 0.50 L Glucose 95 Calcium 8.6 Liver Function 03/23/19 Range/Units 06:38 Total Bilirubin 0.3 (0.2-1.3) mg/dL AST 16 (14-36) U/L ALT 15 (4-35) U/L Alkaline Phosphatase 51 (38-126) U/L Albumin 2.8 L (3.5-5.1) g/dL Assessment and Plan Assessment and plan (1) Pneumonia: Qualifiers: Laterality: bilateral Lung location: unspecified part of lung Pneumonia type: due to unspecified organism Qualified Code(s): J18.9 - Pneumonia, unspecified organism Code(s): J18.9 - Pn
--- NOTE | 2019-03-23 13:10 | PM.DS ---
DS: Diagnosis Discharge Diagnosis (1) Pneumonia: Qualifiers: Laterality: bilateral Lung location: unspecified part of lung Pneumonia type: due to unspecified organism Qualified Code(s): J18.9 - Pneumonia, unspecified organism Code(s): J18.9 - Pneumonia, unspecified organism Status: Acute Assessment and Plan: Will continue IV antibiotics Zosyn and vancomycin will continue to monitor repeat chest x-ray DS: Summary Time Spent with Patient Time attestation: Total time spent providing and/or coordinating discharge services: Exam Narrative: Exam Narrative: Patient is chronically ill elderly and frail Const: General: comfortable and no acute distress HENMT: General nose exam: nares normal Mouth: Yes moist mucous membranes Eyes: General: appearance normal, both eyes and all related structures Neck: Neck: supple Resp: Other: Bilateral poor air entry with rhonchi Cardio: Rate: regular rate Rhythm: regular rhythm Skin: General skin exam: normal color and no rashes or lesions noted Neuro: Cognition (Neuro): abnormal cognition Extrem: Other: Some contraction Psych: Other: Somnolent DS: Data Data Completed and Pending Labs on day of discharge: Labs from last 24 hours 03/23/19 03/23/19 03/22/19 06:38 06:38 21:17 WBC 8.7 RBC 3.37 L Hgb 10.7 L Hct 34.4 L MCV 102.1 H MCH 31.8 MCHC 31.1 L RDW 12.7 Plt Count 292 MPV 10.6 H Immature Gran % (Auto) 2.4 H Neut % (Auto) 69.0 Lymph % (Auto) 16.1 L [place] % (Auto) 7.7 Eos % (Auto) 4.3 Baso % (Auto) 0.5 Lymph # (Auto) 1.40 [place] # (Auto) 0.7 H Eos # (Auto) 0.4 H Baso # (Auto) 0.0 Abs Immat Gran (auto) 0.21 H Absolute Neuts (auto) 6.0 Absolute Nucleated RBC 0.0 Nucleated RBC % 0.0 Sodium 141 Potassium 3.0 L Chloride 98 Carbon Dioxide > 40 H BUN 9 D Creatinine 0.50 L 0.50 L Estim Creat Clear Calc 54 54 Estimated GFR > 60 > 60 Glucose 95 Calcium 8.6 Total Bilirubin 0.3 AST 16 ALT 15 Alkaline Phosphatase 51 Total Protein 6.0 L Albumin 2.8 L Discharge Plan Discharge Attending physician on discharge: Tea Beyer Discharging Clinician: Tea Beyer Patient Disposition: Hospice - Home Activity: as tolerated Diet: regular Discharge Instructions: Patient is being discharged home where she will be readmitted under hospice care. Patient Instructions: Hospice Care (GEN), Pneumonia (DC) Stand Alone Forms: General Discharge Information Discharge Medications: Continued buspirone 10 mg Tablet 10 mg PO BID RF: 0 lorazepam 2 mg Tablet 2 mg PO BID PRN (Reason: Agitation) RF: 0 aspirin [Adult Low Dose Aspirin] 81 mg Tablet,Delayed Release (Dr/Ec) 81 mg PO DAILY RF: 0 loratadine [Allergy Relief (loratadine)] 10 mg Tablet 10 mg PO DAILY RF: 0 prednisone 20 mg Tablet 20 mg PO BID RF: 0 hydrocodone-acetaminophen [[place]] 5-325 mg Tablet 1 tablet PO Q4H PRN (Reason: Pain (Scale Score 4-6)) RF: 0 quetiapine [Seroquel] 25 mg Tablet 25 mg PO HS PRN (Reason: Sleep) Qty: 15 RF: 0 albuterol sulfate 2.5 mg /3 mL (0.083 %) Solution For Nebulization 2.5 mg inhalation Q6HRT PRN (Reason: Shortness of breath) 30 Days Qty: 360 RF: 0 bisacodyl 10 mg Suppository 10 mg [place] QAM PRN (Reason: Constipation) Qty: 5 RF: 0 amoxicillin-pot clavulanate [Augmentin] 875-125 mg tablet 1 tablet PO Q12H Qty: 10 RF: 0 Date of admission: 03/22/19 16:53 Primary Care Provider: Marco Antonio Porter Admitting Provider: Tea Beyer Discharge Date/Time: 03/23/19 14:56 Attending physician on admission: Tea Beyer
[2019-03-23] MEDS: LORAZEPAM 1 MG TABLET 2 MG PO (13:31)
--- NOTE | 2019-04-16 09:20 | PM.DS ---
DS: Diagnosis Admitting Diagnosis Admitting Diagnosis: Pneumonia, unspecified organism Discharge Diagnosis (1) Pneumonia: Qualifiers: Laterality: bilateral Lung location: unspecified part of lung Pneumonia type: due to unspecified organism Qualified Code(s): J18.9 - Pneumonia, unspecified organism Code(s): J18.9 - Pneumonia, unspecified organism Status: Acute Assessment and Plan: Will continue IV antibiotics Zosyn and vancomycin will continue to monitor repeat chest x-ray DS: Summary Time Spent with Patient Time attestation: Total time spent providing and/or coordinating discharge services: Exam Narrative: Exam Narrative: Patient is chronically ill elderly and frail Const: General: comfortable and no acute distress HENMT: General nose exam: Normal nares present Mouth: Yes moist mucous membranes Eyes: General: appearance normal, both eyes and all related structures Neck: Neck: supple Resp: Other: Bilateral poor air entry with rhonchi Cardio: Rate: regular rate Rhythm: regular rhythm Skin: General skin exam: normal color and no rashes or lesions noted Neuro: Cognition (Neuro): abnormal cognition Extrem: Other: Some contraction Psych: Other: Somnolent Discharge Plan Discharge Attending physician on discharge: Tea Beyer Discharging Clinician: Tea Beyer Patient Disposition: Hospice - Home Activity: as tolerated Diet: regular Discharge Instructions: Patient is being discharged home where she will be readmitted under hospice care. Patient Instructions: Hospice Care (GEN), Pneumonia (DC) Stand Alone Forms: General Discharge Information Discharge Medications: Continued buspirone 10 mg Tablet 10 mg PO BID RF: 0 lorazepam 2 mg Tablet 2 mg PO BID PRN (Reason: Agitation) RF: 0 aspirin [Adult Low Dose Aspirin] 81 mg Tablet,Delayed Release (Dr/Ec) 81 mg PO DAILY RF: 0 loratadine [Allergy Relief (loratadine)] 10 mg Tablet 10 mg PO DAILY RF: 0 prednisone 20 mg Tablet 20 mg PO BID RF: 0 hydrocodone-acetaminophen [[place]] 5-325 mg Tablet 1 tablet PO Q4H PRN (Reason: Pain (Scale Score 4-6)) RF: 0 quetiapine [Seroquel] 25 mg Tablet 25 mg PO HS PRN (Reason: Sleep) Qty: 15 RF: 0 albuterol sulfate 2.5 mg /3 mL (0.083 %) Solution For Nebulization 2.5 mg inhalation Q6HRT PRN (Reason: Shortness of breath) 30 Days Qty: 360 RF: 0 bisacodyl 10 mg Suppository 10 mg [place] QAM PRN (Reason: Constipation) Qty: 5 RF: 0 amoxicillin-pot clavulanate [Augmentin] 875-125 mg tablet 1 tablet PO Q12H Qty: 10 RF: 0 Date of admission: 03/22/19 16:53 Primary Care Provider: Marco Antonio Porter Admitting Provider: Tea Beyer Discharge Date/Time: 03/23/19 14:56 Attending physician on admission: Tea Beyer
== END 2019-03-23 14:56 | disposition home or self-care (01) | DRG 194 ==
PROVIDERS: Internal Medicine; Admitting Provider Family Medicine; PCP Internal Medicine; Visit Provider Family Medicine
DX: J18.9 Pneumonia, unspecified organism (principal); E46 Unspecified protein-calorie malnutrition; Z68.1 Body mass index [BMI] 19.9 or less, adult; J43.9 Emphysema, unspecified; Z86.73 Personal history of transient ischemic attack (TIA), and cerebral infarction without residual deficits; E78.5 Hyperlipidemia, unspecified; M81.0 Age-related osteoporosis without current pathological fracture; Z87.891 Personal history of nicotine dependence
CPT/HCPCS: 36415; 80053; 82565; 85025; A9270; J0295; J3370; J7512